=== PATIENT | male | born 1955 | race Caucasian/White ===

== ENCOUNTER 2022-08-21 10:53 | Outpatient (CLI) | payer OTHER, SELFPAY ==
[2022-08-21 14:05] LABS: Cholesterol* 196 mg/dL (90-199)
[2022-08-21 14:06] LABS: HDL Cholesterol* 60 mg/dL (>=40); LDL Cholesterol Calculated 120 mg/dL (<100); Triglycerides* 79 mg/dL (40-149)
== END 2022-08-21 10:54 | disposition home or self-care (01) ==
LOC: FRMREF 10:54
PROVIDERS: PCP Physician Assistant Medical; Visit Provider Physician Assistant Medical
DX: E78.5 Hyperlipidemia, unspecified (principal)
CPT/HCPCS: 80061